=== PATIENT | female | born 1930 | race Caucasian/White ===

== ENCOUNTER → 2016-10-13 | Outpatient (CLI) | payer MEDICARE, OTHER ==
[~2016-10-13] MED LIST: ALEVE 220MG220 MG PO; CALCIUM CITRATE1 TA5 PO; CALTRATE 600 +1 TAB PO; COZAAR 25MG25 MG/TAB PO; DIOVAN80 M1 PO; EVISTA 60MG60 MG/TAB PO; FOLIC ACID PO; GLUCOSAMINE PO; LIPITOR 10MG10 MG PO; NEXIUM40 MG PO; NIFEREX-150 501 CA1 PO; ONE DAILY1 TA1 PO; PAMELOR 25MG25 MG PO; VITAMIN D 400400 IU PO; ZOCOR 20MG20 MG PO
== END ==
LOC: MC.RAD 10-06 11:20
DX: Z12.31 Encounter for screening mammogram for malignant neoplasm of breast (principal)